=== PATIENT | female | born 1965 | race Caucasian/White ===

== ENCOUNTER → 2024-02-11 | Outpatient (CLI) | payer MEDICARE, MEDICAID ==
[~2024-02-11] MED LIST: AMITRIPTYLINE H50 M1 PO; AMOXICILLI400 MG/51 PO; ASPIRIN 81M81 MG/TA2 PO; ASPIRIN E.C. 8181 MG PO; BUSPAR5 MG PO; CYCLOBENZAPRINE10 M1 PO; ELAVIL25 MG PO; FENTANYL 25 MCG TOP; FLEXERIL 1010 MG/TAB PO; FLEXERIL10 MG PO; GLYBURIDE5 MG PO; IBUPROFEN1 CRY; IBUPROFEN200 M2 PO; JANUVIA 100MG100 MG PO; JANUVIA100 MG PO; KLONOPIN 1MG1 M1 PO; LANTUS100 U/ML; LANTUS100 U/ML SQ; LEXAPRO 10MG10 MG PO; LEXAPRO20 MG PO; LISINOPRIL5 MG PO; LORTAB ELIX0.5 MG/ML; MOTRIN SUSP20 MG/ML PO; MULTIVITAMIN1 CTB PO; NEURONTIN300 MG PO; PRILOSEC 20MG20 MG PO; SYNTHROID0.05 MG PO; SYNTHROID0.05 MG/TA PO; ZESTRIL 5MG5 MG PO; ZOCOR 40MG40 MG PO; [UNRECOGNIZED DRUG - OTHER] PO
== END ==
LOC: COL.RAD 07:50
DX: M67.813 Other specified disorders of tendon, right shoulder (principal)